=== PATIENT | male | born 1990 | race Caucasian/White ===

== ENCOUNTER 2018-10-06 21:05 | Emergency (ER) | payer BC, OTHER ==
[2018-10-06] MEDS ORDERED: IBUPROFEN 400 MG TAB ONE (21:50)
[2018-10-06] MEDS ORDERED: HYDROCODONE/APAP 10/325 TAB ONE (21:53)
--- NOTE | 2018-10-06 22:18 | EDPHYS ---
Physician Documentation [facility] Name: Gonzalez Casas Age: 28 yrs Sex: Male : 1990 Arrival Date: 10/06/2018 Time: 21:09 Bed 16 Private MD: ED Physician Lawson Castro HPI: 10/06 21:30 This 28 yrs old Male presents to ER via Ambulatory with complaints of Arm alecia Injury. 21:30 The patient or guardian complains of decreased range of motion, pain, that is acute. alecia The complaints affect the right antecubital area and right elbow. Context: The problem was sustained at home, outdoors. Onset: The symptoms/episode began/occurred just prior to arrival. Treatment prior to arrival includes: no previous treatment. Modifying factors: The symptoms are alleviated by remaining still, the symptoms are aggravated by movement. Associated signs and symptoms: The patient has no apparent associated signs or symptoms. Severity of symptoms: At their worst the symptoms were mild, in the emergency department the symptoms are unchanged. The patient has not experienced similar symptoms in the past. Historical: - Allergies: 21:20 No Known Allergies; tl3 - Home Meds: 21:20 None [Active]; tl3 - PSHx: 21:20 Tonsillectomy; tl3 - Immunization history:: Adult Immunizations up to date. - Social history:: Smoking status: Patient/guardian denies using tobacco, never smoked. - Ebola Screening: : No symptoms or risks identified at this time. - Family history:: not pertinent. ROS: 21:30 Constitutional: Negative for fever, chills, and weight loss, Eyes: Negative for injury, alecia pain, redness, and discharge, ENT: Negative for injury, pain, and discharge, Neck: Negative for injury, pain, and swelling, Cardiovascular: Negative for chest pain, palpitations, and edema, Respiratory: Negative for shortness of breath, cough, wheezing, and pleuritic chest pain, Abdomen/GI: Negative for abdominal pain, nausea, vomiting, diarrhea, and constipation, Back: Negative for injury and pain, : Negative for injury, bleeding, discharge, and swelling, Skin: Negative for injury, rash, and discoloration, Neuro: Negative for headache, weakness, numbness, tingling, and seizure, Psych: Negative for depression, anxiety, suicide ideation, homicidal ideation, and hallucinations, Allergy/Immunology: Negative for hives, rash, and allergies, Endocrine: Negative for neck swelling, polydipsia, polyuria, polyphagia, and marked weight changes, Hematologic/Lymphatic: Negative for swollen nodes, abnormal bleeding, and unusual bruising. 21:30 MS/extremity: Positive for decreased range of motion, pain, swelling, tenderness, of the right hand, anterior aspect of right shoulder, right antecubital area, posterior aspect of right shoulder and right elbow. Exam: 21:30 Constitutional: This is a well developed, well nourished patient who is awake, alert, alecia and in no acute distress. Head/Face: Normocephalic, atraumatic. Eyes: Pupils equal round and reactive to light, extra-ocular motions intact. Lids and lashes normal. Conjunctiva and sclera are non-icteric and not injected. Cornea within normal limits. Periorbital areas with no swelling, redness, or edema. ENT: Nares patent. No nasal discharge, no septal abnormalities noted. Tympanic membranes are normal and external auditory canals are clear. Oropharynx with no redness, swelling, or masses, exudates, or evidence of obstruction, uvula midline. Mucous membranes moist. Neck: Trachea midline, no thyromegaly or masses palpated, and no cervical lymphadenopathy. Supple, full range of motion without nuchal rigidity, or vertebral point tenderness. No Meningismus. Chest/axilla: Normal chest wall appearance and motion. Nontender with no deformity. No lesions are appreciated. Cardiovascular: Regular rate and rhythm with a normal S1 and S2. No gallops, murmurs, or rubs. Normal PMI, no JVD. No pulse deficits. Respiratory: Lungs have equal breath sounds bilaterally, clear to auscultation and percussion. No rales, rhonchi or wheezes noted. No increased work of breathing, no retractions or nasal flaring. Abdomen/GI: Soft, non-tender, with normal bowel sounds. No distension or tympany. No guarding or rebound. No evidence of tenderness throughout. Back: No spinal tenderness. No costovertebral tenderness. Full range of motion. Male : Normal genitalia with no discharge or lesions. Skin: Warm, dry with normal turgor. Normal color with no rashes, no lesions, and no evidence of cellulitis. Neuro: Awake and alert, GCS 15, oriented to person, place, time, and situation. Cranial nerves II-XII grossly intact. Motor strength 5/5 in all extremities. Sensory grossly intact. Cerebellar exam normal. Normal gait. Psych: Awake, alert, with orientation to person, place and time. Behavior, mood, and affect are within normal limits. 21:30 Musculoskeletal/extremity: Extremities: noted in the anterior aspect of right shoulder, right antecubital area, posterior aspect of right shoulder and right elbow: decreased ROM, pain, swelling, tenderness. Vital Signs: 21:20 BP 129 / 87; Pulse 84; Resp 16; Temp 98.3; Pulse Ox 97% ; Weight 111.13 kg; Height 6 tl3 ft. (182.88 cm); 22:30 BP 125 / 70; Pulse 80; Resp 17; Pulse Ox 99% ; rr5 21:20 Body Mass Index 33.23 (111.13 kg, 182.88 cm) tl3 MDM: 21:24 Patient medically screened. [facility] 21:33 Data reviewed: vital signs, nurses notes, radiologic studies. [facility] 10/06 21:30 Order name: Elbow Right 3 View XRAY [facility] 10/06 21:30 Order name: Shoulder Right (2 View) XRAY [facility] 10/06 21:30 Order name: Ice pack; Complete Time: 21:48 [facility] 10/06 21:34 Order name: Sling; Complete Time: 21:48 [facility] 10/06 22:23 Order name: Splint - Elbow - Posterior; Complete Time: 22:42 [facility] Administered Medications: 22:01 Drug: Motrin 800 mg Route: PO; rr5 22:42 Follow up: Response: No adverse reaction rr5 22:01 Drug: [place] 10 mg-325 mg 1 tabs Route: PO; rr5 22:42 Follow up: Response: No adverse reaction rr5 Disposition: 10/06/18 22:17 Discharged to Home. Impression: Pain in right elbow, Pain in right shoulder, Displaced fracture of head of right radius - mild. - Condition is Stable. - Discharge Instructions: Joint Pain, Musculoskeletal Pain, Shoulder Pain, Shoulder Pain, [id number], Joint Pain, [id number]-bw-[id number]. - Prescriptions for Tylenol- Codeine #3 300-30 mg Oral Tablet - take 2 tablet by ORAL route every 6 hours As needed; 30 tablet. Motrin IB 200 mg Oral Tablet - take 2 tablet by ORAL route every 6 hours As needed as needed with food; 20 tablet. - Medication Reconciliation Form, Thank You Letter, Antibiotic Education, Prescription Opioid Use, Work release form form. - Follow up: Robby Dyer; When: 1 - 2 days; Reason: Recheck today's complaints, Continuance of care, Re-evaluation by your physician. - Problem is new. - Symptoms have improved. Signatures: Dispatcher [employer] EDLawson Todd MD MD cha Lowrey, Tammy RN RN tl3 Kirk Navarro RN RN rr5 Corrections: (The following items were deleted from the chart) 22:59 22:17 10/06/2018 22:17 Discharged to Home. Impression: Pain in right elbow; Pain in rr5 right shoulder; Displaced fracture of head of right radius - mild. Condition is Stable. Discharge Instructions: Joint Pain, Musculoskeletal Pain, Shoulder Pain, Shoulder Pain, [id number]-Egip, Joint Pain, [id number]. Prescriptions for Tylenol-Codeine #3 300-30 mg Oral Tablet - take 2 tablet by ORAL route every 6 hours As needed; 30 tablet, Motrin IB 200 mg Oral Tablet - take 2 tablet by ORAL route every 6 hours As needed as needed with food; 20 tablet. and Forms are Medication Reconciliation Form, Thank You Letter, Antibiotic Education, Prescription Opioid Use. Follow up: Robby Dyer; When: 1 - 2 days; Reason: Recheck today's complaints, Continuance of care, Re-evaluation by your physician. Problem is new. Symptoms have improved. alecia
--- NOTE | 2018-10-06 22:18 | ER ---
Nurse's Notes [facility] Name: Gonzalez Casas Age: 28 yrs Sex: Male : 1990 Arrival Date: 10/06/2018 Time: 21:09 Bed 16 Private MD: Diagnosis: Pain in right elbow;Pain in right shoulder;Displaced fracture of head of right radius-mild Presentation: 10/06 21:17 Presenting complaint: Patient states: pt reports that he fell back on his left arm tl3 causing it to twist, right hand swollen, cap refill less than 2 seconds, able to move fingers freely. C/O pain to right elbow. Transition of care: patient was not received from another setting of care. Onset of symptoms was October 06, 2018. Risk Assessment: Do you want to hurt yourself or someone else? Patient reports no desire to harm self or others. Initial Sepsis Screen: Does the patient meet any 2 criteria? No. Patient's initial sepsis screen is negative. Does the patient have a suspected source of infection? No. Patient's initial sepsis screen is negative. Care prior to arrival: None. 21:17 Method Of Arrival: Ambulatory tl3 21:17 Acuity: VIOLETA 3 tl3 Triage Assessment: 21:20 General: Appears uncomfortable, Behavior is calm, cooperative, appropriate for age. tl3 Pain: Pain currently is 5 out of 10 on a pain scale. at worst was 10 out of 10 on a pain scale. 21:20 Injury Description: trauma on right elbow history of fall. rr5 Historical: - Allergies: 21:20 No Known Allergies; tl3 - Home Meds: 21:20 None [Active]; tl3 - PSHx: 21:20 Tonsillectomy; tl3 - Immunization history:: Adult Immunizations up to date. - Social history:: Smoking status: Patient/guardian denies using tobacco, never smoked. - Ebola Screening: : No symptoms or risks identified at this time. - Family history:: not pertinent. Screenin:25 Abuse screen: Denies threats or abuse. Denies injuries from another. Nutritional rr5 screening: No deficits noted. Tuberculosis screening: No symptoms or risk factors identified. Fall Risk Fall in past 12 months (25 points). Total [place] Fall Scale indicates Low Risk Score (25-44 pts). Fall prevention measures have been instituted. Side Rails Up X 2 Frequent Obs/Assesments occuring Family Present and informed to notify staff if they need to leave bedside As available Patient and Family Educated on Fall Prevention Program and strategies. Assessment: 21:30 General: Appears in no apparent distress. uncomfortable, Behavior is calm, cooperative, rr5 appropriate for age. Pain: Complains of pain in right elbow and right shoulder. Neuro: Level of Consciousness is awake, alert, obeys commands, Oriented to person, place, time, situation, Appropriate for age. Cardiovascular: Capillary refill < 3 seconds Patient's skin is warm and dry. Respiratory: Airway is patent Respiratory effort is even, unlabored, Respiratory pattern is regular, symmetrical. GI: No signs and/or symptoms were reported involving the gastrointestinal system. : No signs and/or symptoms were reported regarding the genitourinary system. EENT: No signs and/or symptoms were reported regarding the EENT system. Derm: Skin is intact, Skin temperature is warm. Musculoskeletal: Capillary refill < 3 seconds, Range of motion: limited in right shoulder and right elbow Swelling present in right hand. 22:40 Reassessment: Patient appears in no apparent distress at this time. Patient and/or rr5 family updated on plan of care and expected duration. Pain level reassessed. Patient is alert, oriented x 3, equal unlabored respirations, skin warm/dry/pink. discharge instruction given and explained without complaints made. Vital Signs: 21:20 BP 129 / 87; Pulse 84; Resp 16; Temp 98.3; Pulse Ox 97% ; Weight 111.13 kg; Height 6 tl3 ft. (182.88 cm); 22:30 BP 125 / 70; Pulse 80; Resp 17; Pulse Ox 99% ; rr5 21:20 Body Mass Index 33.23 (111.13 kg, 182.88 cm) tl3 ED Course: 21:09 Patient arrived in ED. al2 21:19 Triage completed. tl3 21:20 Arm band placed on right wrist. tl3 21:24 Lawson Castro MD is Attending Physician. [facility] 21:24 Kirk Navarro RN is Primary Nurse. rr5 21:30 Patient has correct armband on for positive identification. Bed in low position. Call rr5 light in reach. Side rails up X2. Pulse ox on. NIBP on. 22:00 Clavicle/Shoulder strap applied on right clavicle/shoulder. rr5 22:15 Robby Dyer MD is Referral Physician. alecia 22:55 Orthoglass splint: posterior long arm splint applied to the right arm. done by control room technician rr5 . 22:58 No provider procedures requiring assistance completed. Patient did not have IV access rr5 during this emergency room visit. 10/07 03:57 Elbow Right 3 View XRAY In Process Unspecified. EDMS 03:57 Shoulder Right (2 View) XRAY In Process Unspecified. EDMS Administered Medications: 10/06 22:01 Drug: Motrin 800 mg Route: PO; rr5 22:42 Follow up: Response: No adverse reaction rr5 22:01 Drug: [place] 10 mg-325 mg 1 tabs Route: PO; rr5 22:42 Follow up: Response: No adverse reaction rr5 Outcome: 22:17 Discharge ordered by . alecia 22:58 Discharged to home ambulatory, with family. rr5 22:58 Condition: stable 22:58 Discharge instructions given to patient, family, Instructed on discharge instructions, follow up and referral plans. medication usage, Demonstrated understanding of instructions, follow-up care, medications, Prescriptions given X 2. 22:59 Patient left the ED. rr5 Signatures: Dispatcher [employer] EDMS Lawson Castro MD MD cha Love, Gertrude Blanton, RN RN tl3 Kirk Navarro, RN RN rr5
[2018-10-06 23:18] VITALS: TEMP 98.3
[2018-10-06 23:22] VITALS: BP 125/70; O2SAT 99
--- NOTE | 2018-10-07 07:53 | RAD REPORT ---
EXAM DESCRIPTION: RAD - Elbow Right 3 View - 10/06/2018 10:08 pm CLINICAL HISTORY: Right elbow pain FINDINGS: Nondisplaced fracture involves the radial head and neck. No dislocation
--- NOTE | 2018-10-07 07:54 | RAD REPORT ---
EXAM DESCRIPTION: RAD - Shoulder Right 2 View - 10/06/2018 10:08 pm CLINICAL HISTORY: Right shoulder pain status post fall FINDINGS: No fracture or dislocation is seen.
== END 2018-10-06 22:59 | disposition home or self-care (01) ==
LOC: ER 21:05
PROC: 2W38X1Z Immobilization of Right Upper Extremity using Splint (ICD-10-PCS; principal; 2018-10-06)
DX: S52.134A Nondisplaced fracture of neck of right radius, initial encounter for closed fracture (principal); S52.124A Nondisplaced fracture of head of right radius, initial encounter for closed fracture; M25.511 Pain in right shoulder; W19.XXXA Unspecified fall, initial encounter; Y92.008 Other place in unspecified non-institutional (private) residence as the place of occurrence of the external cause
CPT/HCPCS: 99284

== ENCOUNTER 2018-12-22 09:47 | Emergency (ER) | payer BC ==
--- NOTE | 2018-12-22 10:47 | RAD REPORT ---
EXAM DESCRIPTION: CT - Stone Protocol - 12/22/2018 10:36 am CLINICAL HISTORY: Flank pain. ABD PAIN COMPARISON: CT ABD PELVIS W CONTRAST dated 02/28/2013 TECHNIQUE: Axial images were obtained without oral or IV contrast. Lack of contrast limits solid org an and vascular assessment. The uqiyu-ax-rana spans the entirety of the system partially obscuring uppermost abdomen and lung bases. Coronal reformatted images were obtained and reviewed. All CT scans are performed using dose optimization technique as appropriate and may include automated exposure control or mA/KV adjustment according to patient size. FINDINGS: The lower lung myrick are clear. Imaged portions of the liver and spleen show no suspicious findings on non-contrast imaging. The panc reas and adrenal glands are normal. No pathologic lymphadenopathy in the abdomen or pelvis. No urinary tract stones or obstructive uropathy. No bowel obstruction, free air, free fluid or abscess. Normal appendix noted.Sigmoid diverticulosis i s with mild pericolonic inflammatory changes present surrounding the left lower quadrant sigmoid colo n. This is compatible with mild acute diverticulitis. No abscess. No significant bony abnormality. Mild lower lumbar spondylosis. IMPRESSION: Mild acute sigmoid diverticulitis without abscess.
[2018-12-22 10:53] LABS: Absolute Monocytes 0.7 K/uL (0.1-1.3); Absolute Neutrophil 4.4 K/uL (1.8-8.0); Basophils % 0.8 % (0-1.3); Eosinophils % 0.5 % (0-4.4); Hematocrit 42.7 % (39.6-49.0); Lymphocytes % 36.8 % (15.3-44.8); MPV 9.5 fL (7.6-11.3); RBC Red Blood Cell Count 5.01 M/uL (4.33-5.43)
[2018-12-22 11:08] LABS: BUN Blood Urea Nitrogen 12 mg/dL (7-18); Bicarbonate 26 mmol/L (21-32); Glucose Level 92 mg/dL (74-106); Potassium 3.7 mmol/L (3.5-5.1); Sodium Level 141 mmol/L (136-145)
--- NOTE | 2018-12-22 12:14 | ER ---
Nurse's Notes [facility] Name: Gonzalez Casas Age: 28 yrs Sex: Male : 1990 Arrival Date: 12/22/2018 Time: 09:50 Bed 13 Private MD: None, None Diagnosis: Diverticulitis of intestine, part unspecified, without perforation or abscess without bleeding Presentation: 12/22 09:54 Presenting complaint: Patient states: Friday night i started having weird pain i guess tw2 where my bladder is, it felt really tight like i had to pee, it has kept getting persistent, i had sharp pain on my left side this morning. Transition of care: patient was not received from another setting of care. Onset of symptoms was December 22, 2018. Risk Assessment: Do you want to hurt yourself or someone else? Patient reports no desire to harm self or others. Initial Sepsis Screen: Does the patient meet any 2 criteria? No. Patient's initial sepsis screen is negative. Does the patient have a suspected source of infection? No. Patient's initial sepsis screen is negative. Care prior to arrival: None. 09:54 Method Of Arrival: Ambulatory tw2 09:54 Acuity: VIOLETA 3 tw2 Triage Assessment: 09:56 General: Appears in no apparent distress. Behavior is calm, cooperative, appropriate tw2 for age. Pain: Complains of pain in abdomen. GI: Reports lower abdominal pain. : Reports pain in suprapubic area pain after urination, warm burning pressure pain "like i tore a muscle". Historical: - Allergies: 09:56 No Known Allergies; tw2 - Home Meds: 09:56 Unable to obtain [Active]; tw2 - PMHx: 09:56 None; tw2 - PSHx: 09:56 Tonsillectomy; Adenoids; tw2 - Immunization history:: Adult Immunizations. - Social history:: Smoking status: . - Ebola Screening: : Patient denies travel to an Ebola-affected area in the 21 days before illness onset. Screenin:00 Abuse screen: Denies threats or abuse. Nutritional screening: No deficits noted. rb1 Tuberculosis screening: No symptoms or risk factors identified. Fall Risk None identified. Assessment: 10:00 General: Appears in no apparent distress. comfortable, Behavior is calm, cooperative, rb1 Denies fever. Pain: Complains of pain in suprapubic area Pain radiates to left lower quadrant Pain currently is 3 out of 10 on a pain scale. at worst was 9 out of 10 on a pain scale. Pain began Friday Aggravated by increased activity. Neuro: Level of Consciousness is awake, alert, obeys commands, Oriented to person, place, time, situation. Cardiovascular: Capillary refill < 3 seconds is brisk in bilateral fingers. Respiratory: Airway is patent Respiratory effort is even, unlabored, Respiratory pattern is regular, symmetrical. GI: Bowel sounds present X 4 quads. : Reports urinary frequency. Derm: Skin is pink, warm \\T\\ dry. Musculoskeletal: Range of motion: intact in all extremities. 10:00 GI: Abd is soft Abdomen is tender to palpation in left lower quadrant. rb1 10:53 Reassessment: Patient appears in no apparent distress at this time. No changes from rb1 previously documented assessment. 11:34 Reassessment: Provider at bedside. rb1 12:20 Reassessment: Patient appears in no apparent distress at this time. Patient and/or rb1 family updated on plan of care and expected duration. Pain level reassessed. Patient is alert, oriented x 3, equal unlabored respirations, skin warm/dry/pink. Patient states symptoms have improved. 12:45 Reassessment: Patient appears in no apparent distress at this time. Patient and/or rb1 family updated on plan of care and expected duration. Pain level reassessed. Patient is alert, oriented x 3, equal unlabored respirations, skin warm/dry/pink. Vital Signs: 09:57 BP 122 / 96; Pulse 95; Resp 18; Temp 98.5(TE); Pulse Ox 96% on R/A; Weight 111.13 kg tw2 (R); Height 6 ft. 0 in. (182.88 cm); Pain 9/10; 10:53 BP 118 / 81; Pulse 73; Resp 16; Pulse Ox 100% on R/A; Pain 3/10; rb1 11:53 BP 117 / 85; Pulse 83; Resp 16; Pulse Ox 98% on R/A; rb1 12:45 BP 117 / 85; Pulse 79; Resp 16; Pulse Ox 100% on R/A; Pain 2/10; rb1 09:57 Body Mass Index 33.23 (111.13 kg, 182.88 cm) tw2 ED Course: 09:50 Patient arrived in ED. mr 09:50 None, None is Private Physician. mr 09:55 Triage completed. tw2 09:55 Arm band placed on. tw2 09:59 Robyn Eason FNP-C is [facility]. kb 09:59 Lawson Castro MD is Attending Physician. kb 10:00 Patient has correct armband on for positive identification. Bed in low position. Call rb1 light in reach. Side rails up X 1. Pulse ox on. NIBP on. 10:01 Giselle Kenny, RN is Primary Nurse. rb1 10:36 CT Stone Protocol In Process Unspecified. EDMS 10:40 Initial lab(s) drawn, by me, sent to lab. Inserted saline lock: 20 gauge in right em1 antecubital area, using aseptic technique. Blood collected. 12:45 No provider procedures requiring assistance completed. rb1 12:45 IV discontinued, intact, bleeding controlled, No redness/swelling at site. Pressure rb1 dressing applied. Administered Medications: 12:05 Drug: Cipro 500 mg Route: PO; rb1 12:45 Follow up: Response: No adverse reaction rb1 12:05 Drug: Flagyl 500 mg Route: PO; rb1 12:45 Follow up: Response: No adverse reaction rb1 12:05 Drug: morphine 4 mg Route: IVP; Site: right antecubital; rb1 12:20 Follow up: Response: No adverse reaction; Pain is decreased rb1 Outcome: 12:14 Discharge ordered by . kb 12:45 Patient left the ED. rb1 12:45 Discharged to home ambulatory, with family. rb1 12:45 Condition: stable 12:45 Discharge instructions given to patient, Instructed on discharge instructions, follow up and referral plans. medication usage, Demonstrated understanding of instructions, follow-up care, medications, Prescriptions given X five Signatures: Dispatcher [employer] EDMS Robyn Eason FNP-C FNP-Ckb Jessika Marquis Eric em1 Giselle Kenny, RN RN rb1 Diane De La Torre RN RN tw2 Corrections: (The following items were deleted from the chart) 13:13 13:09 Patient left the ED. rb1 rb1
[2018-12-22] MEDS ORDERED: CIPROFLOXACIN HCL 500 MG TAB ONE (12:15)
[2018-12-22] MEDS ORDERED: MORPHINE 4 MG/ML SYR ONE (12:15)
[2018-12-22] MEDS ORDERED: metroNIDAZOLE 500 MG TABLET ONE (12:15)
--- NOTE | 2018-12-22 12:15 | EDPHYS ---
Physician Documentation [facility] Name: Gonzalez Casas Age: 28 yrs Sex: Male : 1990 Arrival Date: 12/22/2018 Time: 09:50 Bed 13 Private MD: None, None ED Physician Lawson Castro HPI: 12/22 12:07 This 28 yrs old Male presents to ER via Ambulatory with complaints of kb Abdominal Pain. 12:07 The patient presents with abdominal pain in the left lower quadrant. Onset: The kb symptoms/episode began/occurred 5 day(s) ago. The symptoms do not radiate. Associated signs and symptoms: none. The symptoms are described as constant. Modifying factors: The symptoms are alleviated by nothing, the symptoms are aggravated by nothing. Severity of pain: At its worst the pain was moderate in the emergency department the pain is unchanged. The patient has not experienced similar symptoms in the past. The patient has not recently seen a physician. Pt reports he started having lower abd pain in bladder area on Friday and felt like he had to urinate a lot. Pain continued since then. Now pain is mostly in LLQ. Historical: - Allergies: 09:56 No Known Allergies; tw2 - Home Meds: 09:56 Unable to obtain [Active]; tw2 - PMHx: 09:56 None; tw2 - PSHx: 09:56 Tonsillectomy; Adenoids; tw2 - Immunization history:: Adult Immunizations. - Social history:: Smoking status: . - Ebola Screening: : Patient denies travel to an Ebola-affected area in the 21 days before illness onset. ROS: 12:07 Constitutional: Negative for fever, chills, and weight loss, Cardiovascular: Negative kb for chest pain, palpitations, and edema, Respiratory: Negative for shortness of breath, cough, wheezing, and pleuritic chest pain, Back: Negative for injury and pain, MS/Extremity: Negative for injury and deformity, Skin: Negative for injury, rash, and discoloration, Neuro: Negative for headache, weakness, numbness, tingling, and seizure. 12:07 Abdomen/GI: Positive for abdominal pain. 12:07 : Positive for urinary frequency. Exam: 12:06 Constitutional: This is a well developed, well nourished patient who is awake, alert, kb and in no acute distress. Head/Face: Normocephalic, atraumatic. ENT: Nares patent. No nasal discharge, no septal abnormalities noted. Tympanic membranes are normal and external auditory canals are clear. Oropharynx with no redness, swelling, or masses, exudates, or evidence of obstruction, uvula midline. Mucous membranes moist. Neck: Trachea midline, no thyromegaly or masses palpated, and no cervical lymphadenopathy. Supple, full range of motion without nuchal rigidity, or vertebral point tenderness. No Meningismus. Chest/axilla: Normal chest wall appearance and motion. Nontender with no deformity. No lesions are appreciated. Cardiovascular: Regular rate and rhythm with a normal S1 and S2. No gallops, murmurs, or rubs. Normal PMI, no JVD. No pulse deficits. Respiratory: Lungs have equal breath sounds bilaterally, clear to auscultation and percussion. No rales, rhonchi or wheezes noted. No increased work of breathing, no retractions or nasal flaring. Back: No spinal tenderness. No costovertebral tenderness. Full range of motion. Skin: Warm, dry with normal turgor. Normal color with no rashes, no lesions, and no evidence of cellulitis. MS/ Extremity: Pulses equal, no cyanosis. Neurovascular intact. Full, normal range of motion. Neuro: Awake and alert, GCS 15, oriented to person, place, time, and situation. Cranial nerves II-XII grossly intact. Motor strength 5/5 in all extremities. Sensory grossly intact. Cerebellar exam normal. Normal gait. 12:06 Abdomen/GI: Inspection: abdomen appears normal, Bowel sounds: normal, in all quadrants, Palpation: soft, in all quadrants, moderate abdominal tenderness, in the left lower quadrant. Vital Signs: 09:57 BP 122 / 96; Pulse 95; Resp 18; Temp 98.5(TE); Pulse Ox 96% on R/A; Weight 111.13 kg tw2 (R); Height 6 ft. 0 in. (182.88 cm); Pain 9/10; 10:53 BP 118 / 81; Pulse 73; Resp 16; Pulse Ox 100% on R/A; Pain 3/10; rb1 11:53 BP 117 / 85; Pulse 83; Resp 16; Pulse Ox 98% on R/A; rb1 12:45 BP 117 / 85; Pulse 79; Resp 16; Pulse Ox 100% on R/A; Pain 2/10; rb1 09:57 Body Mass Index 33.23 (111.13 kg, 182.88 cm) tw2 MDM: 09:59 Patient medically screened. kb 11:47 Data reviewed: vital signs, nurses notes. Data interpreted: Pulse oximetry: on room air kb is 100 %. Interpretation: normal. Counseling: I had a detailed discussion with the patient and/or guardian regarding: the historical points, exam findings, and any diagnostic results supporting the discharge/admit diagnosis, lab results, radiology results, the need for outpatient follow up, a family practitioner, a educational advisor, to return to the emergency department if symptoms worsen or persist or if there are any questions or concerns that arise at home. 12/22 10:15 Order name: Urine Dipstick--Ancillary (enter results) kb 12/22 10:16 Order name: CBC with Diff; Complete Time: 11:03 kb 12/22 10:16 Order name: Basic Metabolic Panel; Complete Time: 11:28 kb 12/22 10:16 Order name: CT Stone Protocol; Complete Time: 11:03 kb 12/22 10:16 Order name: IV Start; Complete Time: 10:50 kb Administered Medications: 12:05 Drug: Cipro 500 mg Route: PO; rb1 12:45 Follow up: Response: No adverse reaction rb1 12:05 Drug: Flagyl 500 mg Route: PO; rb1 12:45 Follow up: Response: No adverse reaction rb1 12:05 Drug: morphine 4 mg Route: IVP; Site: right antecubital; rb1 12:20 Follow up: Response: No adverse reaction; Pain is decreased rb1 Disposition: 15:37 Co-signature as Attending Physician, Lawson Castro MD I agree with the assessment and alecia plan of care. Disposition: 12/22/18 12:14 Discharged to Home. Impression: Diverticulitis of intestine, part unspecified, without perforation or abscess without bleeding. - Condition is Stable. - Discharge Instructions: Diverticulitis, [id number]. - Prescriptions for Flagyl 500 mg Oral Tablet - take 1 tablet by ORAL route every 8 hours for 10 days; 30 tablet. Tylenol- Codeine #3 300-30 mg Oral Tablet - take 1 tablet by ORAL route every 6 hours As needed; 15 tablet. Zofran 4 mg Oral Tablet - take 1 tablet by ORAL route every 6 hours As needed; 20 tablet. Cipro 500 mg Oral Tablet - take 1 tablet by ORAL route every 12 hours for 10 days; 20 tablet. Diclofenac Sodium 75 mg Oral Tablet, Delayed Release (E.C.) - take 1 tablet by ORAL route 2 times per day As needed; 30 tablet. - Medication Reconciliation Form, Thank You Letter, Antibiotic Education, Prescription Opioid Use form. - Follow up: Emergency Department; When: As needed; Reason: Worsening of condition. Follow up: Private Physician; When: 2 - 3 days; Reason: Recheck today's complaints, Continuance of care, Re-evaluation by your physician. Signatures: Dispatcher [employer] EDMS Robyn Eason, MANAGER BABY-C MANAGER BABY-Lawson Roldan MD MD cha Barber, Rebecca, RN RN rb1 Diane De La Torre RN RN tw2 Corrections: (The following items were deleted from the chart) 13:09 12:14 12/22/2018 12:14 Discharged to Home. Impression: Diverticulitis of intestine, rb1 part unspecified, without perforation or abscess without bleeding. Condition is Stable. Forms are Medication Reconciliation Form, Thank You Letter, Antibiotic Education, Prescription Opioid Use. Follow up: Emergency Department; When: As needed; Reason: Worsening of condition. Follow up: Private Physician; When: 2 - 3 days; Reason: Recheck today's complaints, Continuance of care, Re-evaluation by your physician. kb
[2018-12-22 13:17] LABS: Urine Blood NEGATIVE (NEG); Urine Glucose NEGATIVE (NEG); Urine Protein NEGATIVE (NEG); Urine Specific Gravity 1.015 (1.005-1.030)
[2018-12-23 02:39] VITALS: BP 117/85; O2SAT 98
== END 2018-12-22 13:09 | disposition home or self-care (01) ==
LOC: ER 09:47
DX: K57.92 Diverticulitis of intestine, part unspecified, without perforation or abscess without bleeding (principal)
CPT/HCPCS: 36415; 74176; 76377; 80048; 81003; 85025; 96374; 99284